=== PATIENT | female | born 1975 | race African-American/Black ===

== ENCOUNTER → 2016-07-13 | Outpatient (REF) | payer OTHER | LOC: M LAB REF 20:07 | PROVIDERS: ATTEND Physician Assistant | DX: L02.415 Cutaneous abscess of right lower limb (principal) ==

== ENCOUNTER 2018-08-02 11:28 | Emergency (ER) | payer OTHER, SELFPAY ==
[~2018-08-02] VITALS: Ht 180.3 cm; Wt 74.5 kg
[2018-08-02] MEDS ORDERED: ADVI200C5 PO (12:38)
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
--- NOTE | 2018-08-02 14:14 | REP ---
LUMBOSACRAL SPINE SERIES: Five views of the lumbosacral spine performed. There is no compression fracture or malalignment. Disc spaces are well preserved. Posterior elements are intact. IMPRESSION: No fracture or dislocation. Electronically Signed by Everardo Schaeffer MD 08/02/2018 02:18 P
[2018-08-02] MEDS ORDERED: NAPR-50 PO (14:17)
[2018-08-02] MEDS ORDERED: ROBA500T PO (14:17)
[2018-08-02 14:20] VITALS: BP 108/67
== END 2018-08-02 14:25 | disposition home or self-care (01) ==
LOC: M ED 11:28
DX: S13.4XXA Sprain of ligaments of cervical spine, initial encounter (principal); S39.012A Strain of muscle, fascia and tendon of lower back, initial encounter; V49.49XA Driver injured in collision with other motor vehicles in traffic accident, initial encounter; Y92.410 Unspecified street and highway as the place of occurrence of the external cause; M50.30 Other cervical disc degeneration, unspecified cervical region